=== PATIENT | female | born 1950 | race Hispanic/Latino ===

== ENCOUNTER 2020-11-03 12:37 | Outpatient (CLI) | payer MEDICARE | END 2020-11-03 12:38 | disposition home or self-care (01) | LOC: SCSMRI 12:37 | PROVIDERS: ATTEND Family Medicine | DX: M71.21 Synovial cyst of popliteal space [Baker], right knee (principal); M25.461 Effusion, right knee; S83.241A Other tear of medial meniscus, current injury, right knee, initial encounter; S83.281A Other tear of lateral meniscus, current injury, right knee, initial encounter ==

== ENCOUNTER 2021-05-19 09:13 | Outpatient (CLI) | payer MEDICARE | END 2021-05-19 09:14 | disposition home or self-care (01) | LOC: SCSMRI 09:13 | PROVIDERS: ATTEND Nurse Practitioner Family | DX: M48.062 Spinal stenosis, lumbar region with neurogenic claudication (principal); M48.07 Spinal stenosis, lumbosacral region | CPT/HCPCS: 72148 ==

== ENCOUNTER 2021-05-21 13:46 | Emergency (ER) | payer MEDICARE ==
[2021-05-21] MEDS ORDERED: Lorazepam 2 MG/ML VIAL ONE (14:57)
[2021-05-21] MEDS ORDERED: Fentanyl 100 MCG/2 ML VIAL ONE (14:57)
[2021-05-21] MEDS ORDERED: Dexamethasone 10 MG/ML VIAL ONE (14:58)
[2021-05-21] MEDS ORDERED: Ketorolac Tromethamine 30 MG/ML VIAL ONE (14:58)
== END 2021-05-21 15:47 | disposition home or self-care (01) ==
LOC: ERS 13:46
DX: M54.42 Lumbago with sciatica, left side (principal)
CPT/HCPCS: 96374; 96375; J1100; J1885; J2060; J3010

== ENCOUNTER 2021-10-18 08:47 | Observation (INO) | payer MEDICARE, OTHER ==
[2021-10-18 09:21] LABS: #Basophils 0.1 thou/uL (0.0-0.2); #Eosinphils 0.5 thou/uL (0.0-0.7); #Lymphocytes 3.1 thou/uL (1.20-3.40); #Monocytes 0.9 thou/uL (0.11-0.59); #Neutrophils 3.3 thou/uL (1.40-6.50); %Eosinophils 6.7 % (0.0-10.0); %Lymphocytes 39.5 % (21.0-51.0); %Monocytes 10.9 % (0.0-10.0); %Neutrophils 41.9 % (42.0-75.0); Hemoglobin 9.3 g/dL (12.0-16.0); Mean Corpuscular HGB CONC 29.3 g/dL (32.0-36.0); Mean Corpuscular Hemoglobin 20.2 pg (27.0-31.0); Mean Platelet Volume 9.3 fL (7.4-10.4); Platelet Count 447 thou/uL (130-400); RBC Distribution Width 17.9 % (11.5-14.5); Red Blood Cell (RBC) Count 4.59 mill/uL (4.20-5.40); White Blood Cell (WBC) Count 7.9 thou/uL (4.8-10.8)
[2021-10-18 09:35] LABS: ALT (SGPT) 15 U/L (8-55); AST (SGOT) 28 U/L (5-34); Albumin 3.6 g/dL (3.4-4.8); Alkaline Phosphatase 131 U/L (40-110); Anion Gap 14 mmol/L (10-20); BUN (Urea Nitrogen) 7 mg/dL (9.8-20.1); Bilirubin, Total 0.5 mg/dL (0.2-1.2); Calc. Creatinine Clearance 0 mL/min (70-130); Calcium 8.9 mg/dL (7.8-10.44); Carbon Dioxide 23 mmol/L (23-31); Chloride 107 mmol/L (98-107); Globulin 3.6 g/dL (2.4-3.5); Glucose 108 mg/dL (83-110); Lipase 26 U/L (8-78); Potassium 3.8 mmol/L (3.5-5.1); Protein, Total 7.2 g/dL (5.8-8.1); Sodium 140 mmol/L (136-145)
[2021-10-18 09:57] LABS: MDiff Complete? YES
[2021-10-18 09:58] LABS: Hypochromia MODERATE=16-30 cells (100X) (0-5/hpf); Microcytosis MODERATE=15-30 cells (100X) (0-5/hpf); Ovalocytes SLIGHT = 2-5 cells (100X) (0-1/hpf); Platelet Morphology Comment Appears Increased; Polychromasia SLIGHT = 2-3 cells (100X) (0-2/hpf)
[2021-10-18] MEDS ORDERED: Pantoprazole 40 MG VIAL ONE (10:38)
[2021-10-18] MEDS ORDERED: Aspirin Chewable 81 MG TAB ONE (10:38)
[2021-10-18 11:21] LABS: Troponin I 0.018 ng/mL (< 0.028)
[2021-10-18 14:37] LABS: Troponin I 0.019 ng/mL (< 0.028)
[2021-10-18 15:53] LABS: Troponin I 0.014 ng/mL (< 0.028)
[2021-10-18] MEDS ORDERED: Acetaminophen 325 MG TAB PO PRN (16:05)
[2021-10-18] MEDS ORDERED: Ondansetron ODT 4 MG TAB PO PRN (16:05)
[2021-10-18 19:24] VITALS: BMI 35.4
[2021-10-18] MEDS ORDERED: Melatonin 3 MG TAB PO PRN (21:25)
[2021-10-18] MEDS: HYDROcodone/Acetaminophen 5/325 mg Tablet PO PRN (21:39)
[2021-10-19 00:57] LABS: SARS-CoV-2 PCR by NAA Not Detected (NotDetected)
[2021-10-19 04:53] LABS: #Basophils 0.1 thou/uL (0.0-0.2); #Eosinphils 0.5 thou/uL (0.0-0.7); #Neutrophils 2.5 thou/uL (1.40-6.50); %Basophils 1.5 % (0.0-1.0); %Eosinophils 7.2 % (0.0-10.0); %Lymphocytes 42.5 % (21.0-51.0); %Monocytes 13.6 % (0.0-10.0); %Neutrophils 35.2 % (42.0-75.0); Hemoglobin 9.1 g/dL (12.0-16.0); Mean Corpuscular HGB CONC 30.6 g/dL (32.0-36.0); Mean Corpuscular Hemoglobin 21.2 pg (27.0-31.0); Mean Corpuscular Volume 69.4 fL (78.0-98.0); Platelet Count 377 thou/uL (130-400); RBC Distribution Width 17.4 % (11.5-14.5); Red Blood Cell (RBC) Count 4.26 mill/uL (4.20-5.40)
[2021-10-19 05:16] LABS: Anion Gap 12 mmol/L (10-20); BUN (Urea Nitrogen) 8 mg/dL (9.8-20.1); Calc. Creatinine Clearance 103 mL/min (70-130); Calcium 8.8 mg/dL (7.8-10.44); Carbon Dioxide 22 mmol/L (23-31); Cardiac Risk 4.5 (Less than 4.5); Chloride 107 mmol/L (98-107); Cholesterol 131 mg/dl (< 200 Desired); Glucose 101 mg/dL (83-110); HDL Cholesterol 29 mg/dL (>60 Neg Risk); LDL Cholesterol, Calculated 75 mg/dL; Potassium 3.7 mmol/L (3.5-5.1); Sodium 137 mmol/L (136-145); Triglycerides 136 mg/dL (Less than 150)
[2021-10-19] MEDS: HYDROcodone/Acetaminophen 5/325 mg Tablet PO PRN ×2 (06:36→12:56)
[2021-10-19 07:17] VITALS: TEMP 97.8
[2021-10-19] MEDS ORDERED: Enoxaparin Sodium 40 MG/0.4 ML SYRINGE SC SCH (09:00)
[2021-10-19] MEDS ORDERED: Escitalopram Oxalate 10 mg Tablet PO SCH (09:00)
[2021-10-19 12:50] VITALS: BP 131/90
== END 2021-10-19 14:17 | disposition home or self-care (01) ==
LOC: ERS 08:47 → 2SW 13:51
PROVIDERS: ADMIT Internal Medicine; ATTEND Internal Medicine
DX: R07.9 Chest pain, unspecified (principal); R10.13 Epigastric pain; D50.9 Iron deficiency anemia, unspecified; I10 Essential (primary) hypertension; R73.03 Prediabetes; I44.7 Left bundle-branch block, unspecified; I08.8 Other rheumatic multiple valve diseases; Z79.899 Other long term (current) drug therapy; Z20.822 Contact with and (suspected) exposure to COVID-19
CPT/HCPCS: 71045; 71275; 80048; 80053; 80061; 83690; 83880; 84484 ×2; 85025 ×2; 93005; 93306; 94760 ×2; 96374; 99285; U0003; U0005; 36415; 96372; C9113; G0378; J1650

== ENCOUNTER 2024-03-21 10:41 | Outpatient (CLI) | payer OTHER | END 2024-03-21 10:42 | disposition home or self-care (01) | LOC: SCSMRI 10:41 | PROVIDERS: ATTEND Orthopaedic Surgery | DX: S83.282D Other tear of lateral meniscus, current injury, left knee, subsequent encounter (principal); M71.22 Synovial cyst of popliteal space [Baker], left knee; M94.262 Chondromalacia, left knee; M94.8X8 Other specified disorders of cartilage, other site ==

== ENCOUNTER 2024-11-20 11:26 | Outpatient (CLI) | payer MEDICARE | END 2024-11-20 11:27 | disposition home or self-care (01) | LOC: NM 11:26 | PROVIDERS: ATTEND Internal Medicine Endocrinology, Diabetes & Metabolism | DX: E05.90 Thyrotoxicosis, unspecified without thyrotoxic crisis or storm (principal) | CPT/HCPCS: 79005; A9517 ==